=== PATIENT | female | born 1980 | race African-American/Black ===

== ENCOUNTER 2020-02-06 08:22 | Inpatient (IN) | payer MEDICAID ==
[~2020-02-06] VITALS: Ht 177.8 cm; Wt 116.3 kg
[~2020-02-06 08:22] MED LIST: NORCO 5-325 TA1 EACH ORAL; PANTOPRAZOLE SO40 MG ORAL; PROTONIX40 MG PO; REGLAN10 MG PO; VICODIN 5-5001 EACH ORAL; VICODIN 5-5001 EACH PO; ZANTAC150 MG ORAL
--- NOTE | 2020-02-06 08:35 | NUR ---
ED Nurse Note: Pt walked in from home c/o epigastric "burning" pain going up through her jesus states she has a hx of gastric reflux. Pt reports n/v. Respirations even and unlabored on room air. Vitals stable as documented. A+Ox4, speaking in complete sentences. Pt vomited yellow vomit upon arrival.
[2020-02-06 08:45] VITALS: BP 142/89
[2020-02-06] MEDS ORDERED: Dicyclomine HCl 10mg/5ml oral soln ORAL ONE (08:45)
[2020-02-06] MEDS ORDERED: Lidocaine 2% Visc 15ml soln ORAL ONE (08:45)
[2020-02-06] MEDS ORDERED: Morphine Sulfate 2mg/ml Inj(IV/IM USE ONLY) IVP ONE (08:45)
[2020-02-06] MEDS ORDERED: Mylanta II UD 30ml ORAL ONE (08:45)
--- NOTE | 2020-02-06 08:45 | Emergency Room Report ---
History of Present Illness General Chief Complaint: Vomiting Source: Patient Present Illness HPI Disclaimer: Please note that this report is being documented using DRAGON technology. This can lead to erroneous entry secondary to incorrect interpretation by the dictating instrument. HPI: 39-year-old female with history of gastritis presents for abdominal pain. Symptoms began early this morning. She reports eating a greasy burger last night and now having burning and cramping upper abdominal pain that radiates to the chest. Typical to her prior episodes of gastritis. She does not take it regular antacid. Denies palpitations, shortness of breath, cough, fever, chills, diarrhea. She had one episode of emesis on arrival to the ED and was nonbloody and nonbilious. Denies flank or lower pelvic pain. Denies dysuria or hematuria. No prior history of abdominal surgeries. No exacerbating or relieving factors. PMH: Gastritis PSH: Denied Allergies: Denied Social Hx: Regular tobacco use, social alcohol use Allergies: Coded Allergies: No Known Allergies (Unverified , 06/29/12) COVID-19 Screening Contact w/high risk pt: No Experienced COVID-19 symptoms?: Yes COVID-19 Testing performed DIRECTOR PACKAGING: No Patient History Last Menstrual Period: none Now: No Nursing Documentation-PMH Past Medical History: No History, Except For Hx Cardiac Problems: Yes - heart murmur Hx Hypertension: Yes Hx Gastrointestinal Problems: Yes - gastritis Review of Systems All Other Systems: negative except mentioned in HPI Physical Exam Vital Signs Date Time Temp Pulse Resp B/P (MAP) Pulse Ox O2 Delivery O2 Flow Rate FiO2 02/06/20 08:27 98.1 78 20 129/86 (100) 95 Room Air General: Awake and alert, no acute distress HEENT: NC/AT. EOMI. Cardiovascular: RRR. S1 and S2 normal. No murmur appreciated Resp: Normal work of breathing. No cough, wheezing or crackles appreciated Abdomen: Abdomen is soft, nondistended. Moderate tender to palpation in the epigastrium. No significant pain in the right upper or left upper quadrants or in the lower abdomen. No guarding. No rebound. Negative Villanueva's. Skin: Intact. No abrasions, laceration or rash over the exposed skin MSK: Normal tone and bulk. Moving all extremities. No obvious deformity. Neuro: Awake and alert. Mentating appropriately. Medical Decision Making Diagnostic Impression: Primary Impression: Gastritis Additional Impression: Intractable vomiting ER Course Is a 39-year-old female presenting for evaluation of epigastric abdominal pain. Differential includes but not limited to gastritis, gastroenteritis, pancreatitis, cholecystitis, hepatitis, GERD, pyelonephritis, UTI among others. IV access established. Patient receiving IV fluids, antiemetics, pain medication, antacids. Labs have returned within normal limits. Urinalysis unremarkable. Patient received multiple rounds of antiemetics, pain medication. Continues to vomit in ED. Will admit for intractable vomiting. Admit to panel physician, Dr. Scherer Laboratory Tests Test 02/06/20 08:40 02/06/20 13:15 White Blood Count 12.2 K/UL (4.8-10.8) H Red Blood Count 5.10 M/UL (4.20-5.40) Hemoglobin 16.5 G/DL (12.0-16.0) H Hematocrit 48.9 % (37.0-47.0) H Mean Corpuscular Volume 96 FL (80-99) Mean Corpuscular Hemoglobin 32.3 PG (27.0-31.0) H Mean Corpuscular Hemoglobin Concent 33.7 G/DL (32.0-36.0) Red Cell Distribution Width 14.0 % (11.6-14.8) Platelet Count 316 K/UL (150-450) Mean Platelet Volume 5.3 FL (6.5-10.1) L Neutrophils (%) (Auto) 50.9 % (45.0-75.0) Lymphocytes (%) (Auto) 39.1 % (20.0-45.0) Monocytes (%) (Auto) 7.9 % (1.0-10.0) Eosinophils (%) (Auto) 0.9 % (0.0-3.0) Basophils (%) (Auto) 1.2 % (0.0-2.0) Prothrombin Time 11.8 SEC (9.30-11.50) H Prothrombin Time INR 1.1 (0.9-1.1) Activated Partial Thromboplast Time 30 SEC (23-33) Sodium Level 140 MMOL/L (136-145) Potassium Level 4.3 MMOL/L (3.5-5.1) Chloride Level 105 MMOL/L (98-107) Carbon Dioxide Level 31 MMOL/L (21-32) Anion Gap 4 mmol/L (5-15) L Blood Urea Nitrogen 8 mg/dL (7-18) Creatinine 1.0 MG/DL (0.55-1.30) Estimated Glomerular Filtration Rate > 60 mL/min (>60) Glucose Level 134 MG/DL (74-106) H Calcium Level 9.3 MG/DL (8.5-10.1) Total Bilirubin 0.4 MG/DL (0.2-1.0) Aspartate Amino Transferase (AST) 21 U/L (15-37) Alanine Aminotransferase (ALT) 22 U/L (12-78) Alkaline Phosphatase 88 U/L (46-116) Troponin I 0.000 ng/mL (0.000-0.056) Total Protein 7.9 G/DL (6.4-8.2) Albumin 3.9 G/DL (3.4-5.0) Globulin 4.0 g/dL Albumin/Globulin Ratio 1.0 (1.0-2.7) Lipase 121 U/L (73-393) Urine Color Pale yellow Urine Appearance Clear Urine pH 6.5 (4.5-8.0) Urine Specific [place] 1.015 (1.005-1.035) Urine Protein 1+ (NEGATIVE) H Urine Glucose (UA) Negative (NEGATIVE) Urine Ketones 3+ (NEGATIVE) H Urine Blood Negative (NEGATIVE) Urine Nitrite Negative (NEGATIVE) Urine Bilirubin Negative (NEGATIVE) Urine Urobilinogen Normal MG/DL (0.0-1.0) Urine Leukocyte Esterase Negative (NEGATIVE) Urine RBC 0 /HPF (0 - 2) Urine WBC 0 /HPF (0 - 2) Urine Squamous Epithelial Cells Occasional /LPF Urine Bacteria Occasional /HPF (NONE) Urine HCG, Qualitative Negative (NEGATIVE) EKG Diagnostic Results Troponin ordered: Yes When was troponin ordered?: Feb 06, 2020 EKG Time: 08:45 Rate: normal Rhythm: NSR ST Segments: no acute changes Other Impression Sinus rhythm, normal axis, normal intervals, no ST segment changes. Precordial Q waves Rhythm Strip Diag. Results Rhythm Strip Time: 08:45 EP Interpretation: yes Rate: 60s Rhythm: NSR, no PVC's, no ectopy Last Vital Signs Date Time Temp Pulse Resp B/P (MAP) Pulse Ox O2 Delivery O2 Flow Rate FiO2 02/06/20 08:27 98.1 78 20 129/86 (100) 95 Room Air Disposition: ADMITTED INPATIENT Condition: Stable Scripts Famotidine* (Pepcid 20mg tablet*) 20 Mg Tablet 20 MG ORAL DAILY for Gerd, #30 TAB 0 Refills Prov: Ankush Le MD 02/06/20 Ondansetron Odt* (ZOFRAN ODT*) 4 Mg Tab.rapdis 4 MG BC EVERY 6 HOURS PRN for Nausea & Vomiting, #20 TAB 0 Refills Prov: Ankush Le MD 02/06/20 Ankush Le MD Feb 06, 2020 08:45
--- NOTE | 2020-02-06 08:56 | NUR ---
ED Nurse Note: pt aware of need for urine sample. medications given.
[2020-02-06 09:01] LABS: INR 1.1 (0.9-1.1)
[2020-02-06 09:08] LABS: BASOPHILS % (AUTO) 1.2 % (0.0-2.0); EOSINOPHILS % (AUTO) 0.9 % (0.0-3.0); HEMATOCRIT 48.9 % (37.0-47.0); HEMOGLOBIN 16.5 G/DL (12.0-16.0); LYMPHOCYTES % (AUTO) 39.1 % (20.0-45.0); MEAN CORPUSCULAR VOLUME 96 FL (80-99); MONOCYTES % (AUTO) 7.9 % (1.0-10.0); NEUTROPHILS % (AUTO) 50.9 % (45.0-75.0); PLATELET COUNT 316 K/UL (150-450); WHITE BLOOD COUNT 12.2 K/UL (4.8-10.8)
[2020-02-06 09:13] LABS: ALANINE AMINOTRANSFERASE 22 U/L (12-78); ALBUMIN 3.9 G/DL (3.4-5.0); ALKALINE PHOSPHATASE 88 U/L (46-116); ANION GAP 4 mmol/L (5-15); ASPARTATE AMINO TRANSFERASE 21 U/L (15-37); BILIRUBIN,TOTAL 0.4 MG/DL (0.2-1.0); BLOOD UREA NITROGEN 8 mg/dL (7-18); CALCIUM 9.3 MG/DL (8.5-10.1); CARBON DIOXIDE 31 MMOL/L (21-32); CHLORIDE 105 MMOL/L (98-107); POTASSIUM 4.3 MMOL/L (3.5-5.1); SODIUM 140 MMOL/L (136-145)
[2020-02-06] MEDS ORDERED: ONDANSETRON ODT4 MG BC (09:21)
[2020-02-06] MEDS ORDERED: FAMOTIDINE20 MG ORAL (09:21)
[2020-02-06] MEDS ORDERED: DiphenhydrAMINE 50mg/ml Inj IVP ONE ×2 (09:30→11:45)
[2020-02-06] MEDS ORDERED: Metoclopramide 10mg/2ml Inj IVP ONE (09:30)
[2020-02-06 10:45] VITALS: BP 149/82
--- NOTE | 2020-02-06 11:00 | NUR ---
ED Nurse Note: pt still unable to provide urine sample. ED MD aware
[2020-02-06] MEDS ORDERED: Meclizine 25mg tab ORAL PRN (11:45)
[2020-02-06] MEDS ORDERED: Ketorolac 30mg Inj IV ONE (12:30)
[2020-02-06 12:45] VITALS: BP 147/81
[2020-02-06 13:41] LABS: APPEARANCE,URINE CLEAR; BILIRUBIN, URINE NEGATIVE (NEGATIVE); COLOR,URINE PALE YELLOW; GLUCOSE, URINE (UA) NEGATIVE (NEGATIVE); KETONES,URINE 3+ (NEGATIVE); LEUKOCYTE ESTERASE ,URINE NEGATIVE (NEGATIVE); NITRITE,URINE NEGATIVE (NEGATIVE); PH,URINE 6.5 (4.5-8.0); PROTEIN,URINE 1+ (NEGATIVE); UROBILINOGEN,URINE NORMAL MG/DL (0.0-1.0)
[2020-02-06 14:54] VITALS: BP 141/76
--- NOTE | 2020-02-06 14:58 | NUR ---
ED Nurse Note: repot given to RIMA Lee on 4E
[2020-02-06 15:00] VITALS: BP 136/77
--- NOTE | 2020-02-06 15:10 | NUR ---
ED Nurse Note: Pt transferred safely to 4E. All belongings including miller sent with patient.
--- NOTE | 2020-02-06 15:21 | NUR ---
NURSE NOTES: I communicated MD Scherer for admission order for DVT, Code status, Diet and medication; waiting for order.
--- NOTE | 2020-02-06 15:22 | NUR ---
NURSE NOTES: I received patient from ER, came to the floor via gurney; I received telephone report from RIMA Padgett; patient alert x4; on room air, no sing of distress and shortness of breath; no sing of chest pain; IV line flushes well; skin intact; belonging singed, and patient had 467 USD, patient refused her money to be kept at safe, patient preferred to keep it at the bed side, charge nurse Vi is aware. side rails up x2, breaks engaged, bed at lowest position; call light within reach; will keep monitoring.
--- NOTE | 2020-02-06 18:15 | History and Physical Report ---
DATE OF ADMISSION: 02/06/2020 REASON FOR ADMISSION: Intractable vomiting. HISTORY OF PRESENT ILLNESS: This is a 39-year-old female who presents with intractable vomiting. The patient has a history of gastritis, presents with ongoing abdominal pain since the morning. The patient has reported nausea, vomiting . No other significant findings. PAST MEDICAL HISTORY: Notable for gastritis. MEDICATIONS: Reviewed. ALLERGIES: Reviewed. SOCIAL HISTORY: The patient does smoke. She does drink socially. REVIEW OF SYSTEMS: Otherwise negative. PHYSICAL EXAMINATION: GENERAL: The patient is a well-developed female. VITAL SIGNS: Reviewed. Blood pressure 136/77, , pulse 91, respirations 20, sats 99% on room air. HEENT: Negative. NECK: Supple. No lymphadenopathy. LUNGS: Clear, symmetric. CARDIAC: Slightly bradycardic. ABDOMEN: Mildly tender diffusely. EXTREMITIES: No cyanosis, clubbing, or edema LABORATORY DATA: Otherwise reviewed. White cell count 12.2. Chemistries noted and otherwise fairly negative. IMPRESSION: 1. Intractable vomiting. 2. History of gastritis, abdominal pain, mild leukocytosis. RECOMMENDATION: NPO, IV hydration, antiemetics, and proton pump inhibitor. GI evaluation. Recheck labs in a.m. and start diet once the patient improves and symptoms resolve. Maycol Scherer M.D. DR: LEONEL JOB#: [id number] CC:
--- NOTE | 2020-02-06 19:09 | NUR ---
HAND-OFF: Report given to RIMA Early.
--- NOTE | 2020-02-06 19:10 | NUR ---
NURSE NOTES: Patient in bed, awake and alert x4. On room air with no signs of distress or SOB. Denies vomiting. Pt reports mild nausea. Will administer PRN nausea medication as ordered. IV intact and patent. Commode at bedside. Bed locked and in lowest position. Call light in reach. Will continue plan of care.
[2020-02-06 20:00] VITALS: BP 133/81
[2020-02-07] VITALS: BP 142/85
[2020-02-07 04:00] VITALS: BP 142/67
--- NOTE | 2020-02-07 06:08 | NUR ---
NURSE NOTES: Patient had emesis x2 this shift. Administered Zofran PRN and Mylanta PRN as ordered. Will continue plan of care.
--- NOTE | 2020-02-07 06:26 | NUR ---
NURSE HAND-OFF: Important Events on Shift: Emesis x2, Pain and nausea control Patient Status: Stable Diet: NPO Pending Orders: N/A Pending Results/Labs: CBC, BMP Pending MD notification: N/A Latest Vital Signs: Temperature 97.9 , Pulse 80 , B/P 142 /67 , Respiratory Rate 20 , O2 SAT 98 , Room Air, O2 Flow Rate . Vital Sign Comment: N/A Latest Wright Fall Score: 20 Fall Risk: Low Risk Safety Measures: Call light Within Reach, Bed Alarm Zone 1, Side Rails Side Rails x2, Bed position . Fall Precautions:
[2020-02-07 07:53] LABS: HEMATOCRIT 43.5 % (37.0-47.0); HEMOGLOBIN 14.8 G/DL (12.0-16.0); MEAN CORPUSCULAR VOLUME 92 FL (80-99); PLATELET COUNT 304 K/UL (150-450); RED BLOOD COUNT 4.71 M/UL (4.20-5.40); RED CELL DISTRIBUTION WIDTH 13.7 % (11.6-14.8); WHITE BLOOD COUNT 19.7 K/UL (4.8-10.8)
[2020-02-07 07:57] LABS: ANION GAP 9 mmol/L (5-15); BLOOD UREA NITROGEN 6 mg/dL (7-18); CALCIUM 8.4 MG/DL (8.5-10.1); CARBON DIOXIDE 26 MMOL/L (21-32); CHLORIDE 102 MMOL/L (98-107); CREATININE 0.8 MG/DL (0.55-1.30); POTASSIUM 3.6 MMOL/L (3.5-5.1); SODIUM 137 MMOL/L (136-145)
[2020-02-07 08:31] VITALS: BP 136/82
--- NOTE | 2020-02-07 08:42 | NUR ---
NURSE NOTES: Patient awake and alert and oriented,respirations unlabored.Patient state she is feeling a little better.IV fluids infusing as ordered.Patient NPO except ice chips and medication.Call light within reach.
--- NOTE | 2020-02-07 09:50 | General Progress Note ---
Subjective Allergies: Coded Allergies: No Known Allergies (Unverified , 06/29/12) Subjective wbc up still with abdominal pain gi and ID called Objective Last 24 Hour Vital Signs Date Time Temp Pulse Resp B/P (MAP) Pulse Ox O2 Delivery O2 Flow Rate FiO2 02/07/20 08:31 98.8 76 20 136/82 (100) 96 02/07/20 04:00 97.9 80 20 142/67 (92) 98 02/07/20 00:00 97.2 51 19 142/85 (104) 100 02/06/20 21:00 Room Air 02/06/20 20:00 98.4 55 20 133/81 (98) 97 02/06/20 15:56 98.1 02/06/20 15:50 Room Air 02/06/20 15:10 98.5 58 20 141/72 98 Room Air 02/06/20 15:00 98.1 48 20 136/77 (96) 99 02/06/20 14:54 97.3 62 20 141/76 99 Room Air 02/06/20 12:45 98.0 49 20 147/81 97 Room Air 02/06/20 10:45 97.8 57 20 149/82 98 Room Air Intake and Output 02/06/20 02/07/20 19:00 07:00 Intake Total 200 ml 200 ml Output Total 100 ml Balance 200 ml 100 ml Intake Oral 200 ml IV Total 200 ml Output Emesis 100 ml # Voids 1 2 Laboratory Tests 02/06/20 13:15: Urine Color Pale yellow, Urine Appearance Clear, Urine pH 6.5, Urine Specific [place] 1.015, Urine Protein 1+H, Urine Glucose (UA) Negative, Urine Ketones 3+H , Urine Blood Negative, Urine Nitrite Negative, Urine Bilirubin Negative, Urine Urobilinogen Normal, Urine Leukocyte Esterase Negative, Urine RBC 0, Urine WBC 0, Urine Squamous Epithelial Cells Occasional, Urine Bacteria Occasional, Urine HCG, Qualitative Negative 02/07/20 07:00: White Blood Count 19.7#H, Red Blood Count 4.71, Hemoglobin 14.8, Hematocrit 43.5, Mean Corpuscular Volume 92, Mean Corpuscular Hemoglobin 31.5H, Mean Corpuscular Hemoglobin Concent 34.1, Red Cell Distribution Width 13.7, Platelet Count 304, Mean Platelet Volume 5.5L, Neutrophils (%) (Auto) , Lymphocytes (%) (Auto) , Monocytes (%) (Auto) , Eosinophils (%) (Auto) , Basophils (%) (Auto) , Neutrophils % (Manual) [Pending], Lymphocytes % (Manual) [Pending], Platelet Estimate [Pending], Platelet Morphology [Pending], Sodium Level 137, Potassium Level 3.6, Chloride Level 102, Carbon Dioxide Level 26, Anion Gap 9, Blood Urea Nitrogen 6L, Creatinine 0.8, Estimat Glomerular Filtration Rate > 60, Glucose Level 126H, Calcium Level 8.4L Height (Feet): 5 Height (Inches): 10.00 Weight (Pounds): 260 Objective WDWN NAD clear breath sounds bilaterally without rhonchi or wheeze [id number] without MRG NABS tender abdomen diffuse; no guarding no CCE nonfocal Assessment/Plan Assessment/Plan: intractable vomiting gastritis leukocytosis PLAN id and gi to see iv fluids zofran antibiotics cultures CT abdomen with po contrast impression, plan, and exam edited and reviewed in detail care discussed with Maycol Guerrero MD Feb 07, 2020 09:50
[2020-02-07] MEDS ORDERED: Omnipaque-300 100ml vial INJ PRN (10:00)
--- NOTE | 2020-02-07 11:31 | General Progress Note ---
Subjective Allergies: Coded Allergies: No Known Allergies (Unverified , 06/29/12) Objective Last 24 Hour Vital Signs Date Time Temp Pulse Resp B/P (MAP) Pulse Ox O2 Delivery O2 Flow Rate FiO2 02/07/20 09:59 Room Air 02/07/20 08:31 98.8 76 20 136/82 (100) 96 02/07/20 04:00 97.9 80 20 142/67 (92) 98 02/07/20 00:00 97.2 51 19 142/85 (104) 100 02/06/20 21:00 Room Air 02/06/20 20:00 98.4 55 20 133/81 (98) 97 02/06/20 15:56 98.1 02/06/20 15:50 Room Air 02/06/20 15:10 98.5 58 20 141/72 98 Room Air 02/06/20 15:00 98.1 48 20 136/77 (96) 99 02/06/20 14:54 97.3 62 20 141/76 99 Room Air 02/06/20 12:45 98.0 49 20 147/81 97 Room Air Intake and Output 02/06/20 02/07/20 19:00 07:00 Intake Total 200 ml 200 ml Output Total 100 ml Balance 200 ml 100 ml Intake Oral 200 ml IV Total 200 ml Output Emesis 100 ml # Voids 1 2 Laboratory Tests 02/06/20 13:15: Urine Color Pale yellow, Urine Appearance Clear, Urine pH 6.5, Urine Specific [place] 1.015, Urine Protein 1+H, Urine Glucose (UA) Negative, Urine Ketones 3+H , Urine Blood Negative, Urine Nitrite Negative, Urine Bilirubin Negative, Urine Urobilinogen Normal, Urine Leukocyte Esterase Negative, Urine RBC 0, Urine WBC 0, Urine Squamous Epithelial Cells Occasional, Urine Bacteria Occasional, Urine HCG, Qualitative Negative 02/07/20 07:00: White Blood Count 19.7#H, Red Blood Count 4.71, Hemoglobin 14.8, Hematocrit 43.5, Mean Corpuscular Volume 92, Mean Corpuscular Hemoglobin 31.5H, Mean Corpuscular Hemoglobin Concent 34.1, Red Cell Distribution Width 13.7, Platelet Count 304, Mean Platelet Volume 5.5L, Neutrophils (%) (Auto) , Lymphocytes (%) (Auto) , Monocytes (%) (Auto) , Eosinophils (%) (Auto) , Basophils (%) (Auto) , Neutrophils % (Manual) [Pending], Lymphocytes % (Manual) [Pending], Platelet Estimate [Pending], Platelet Morphology [Pending], Sodium Level 137, Potassium Level 3.6, Chloride Level 102, Carbon Dioxide Level 26, Anion Gap 9, Blood Urea Nitrogen 6L, Creatinine 0.8, Estimat Glomerular Filtration Rate > 60, Glucose Level 126H, Calcium Level 8.4L Height (Feet): 5 Height (Inches): 10.00 Weight (Pounds): 260 Assessment/Plan Assessment/Plan: Assessment - Abd pain - N/V - Obesity - h/o gastrtitis - Leukocytosis Recommendations - await CT scan - anti emetics - follow symptoms - IVF - PPI Thank you Lion Renae MD Feb 07, 2020 11:31
--- NOTE | 2020-02-07 12:27 | Diagnostic Imaging Report ---
CT ABDOMEN AND PELVIS WITH CONTRAST INDICATION: Intractable vomiting, abdominal pain TECHNIQUE: Continuous helical transaxial imaging of the abdomen and pelvis was obtained from the lung bases to the pubic symphysis during intravenous contrast administration. Coronal 2-D reformats were also obtained. Study obtained in a Siemens sensation [address] Automatic Exposure Control was utilized. Total Dose length Product (DLP): 1486.[address] Dose Index Volume (CTDIvol): 26.2 mGy COMPARISON: CT abdomen pelvis dated 09/21/2011 FINDINGS: Lower chest:: Bibasilar subsegmental atelectasis. Small hiatal hernia. Hepatobiliary:: Unremarkable. Genitourinary:: No hydronephrosis or nephrolithiasis. Adrenals:: Unremarkable. Pancreas:: Unremarkable. Gastrointestinal:: No evidence of obstruction. Appendix is normal. No evidence of obstruction. Scattered colonic diverticulosis without evidence of acute diverticulitis. Spleen: : Unremarkable. Peritoneum:: No free air or free fluid. Moderate fat-containing periumbilical hernia. Bones and soft tissues:: There are multilevel discogenic degenerative changes of the visualized spine. IMPRESSION: Colonic diverticulosis without evidence of acute diverticulitis. The CT scanner at [facility] is accredited by the [employer] and the scans are performed using protocols designed to limit radiation exposure to as low as reasonably achievable to attain images of sufficient resolution adequate for diagnostic evaluation.
[2020-02-07 12:51] VITALS: BP 158/100
--- NOTE | 2020-02-07 14:35 | NUR ---
CASE MANAGEMENT:INITIAL REVIEW 39 YR OLD FEMALE CC;VOMITING SI;INTRACTABLE VOMITING. GASTRITIS. 98.1 49 22 149/82 95% ON RA WBC 19.7 PT 11.8 UA+ PROTEIN, KETONES ABD/PELVIS CT ~ Colonic diverticulosis without evidence of acute diverticulitis. IS;ZOFRAN IV X2 PEPCID IV IVF NS BOLUS X2 MYLANTA PO LIDOCAINE PO ONCE MORPHINE SULFATE IV REGLAN IV TORADOL IV PHENERGAN IM ADMITTED TO MED SURG MED SURG STATUS DCP;FROM HOME
[2020-02-07 16:00] VITALS: BP 150/87
[2020-02-07] MEDS ORDERED: Morphine Sulfate 2mg/ml Inj(IV/IM USE ONLY) IVP PRN (16:15)
[2020-02-07] MEDS ORDERED: Morphine Sulfate 4mg/ml Inj (IV USE ONLY) IVP PRN (16:15)
--- NOTE | 2020-02-07 19:15 | NUR ---
NURSE NOTES: Patient left Against medical Advice,patient state she has children at home and there is a lot to do . Patient is planning a celebration this weekend and need to go home. Patient state they are not explaining to her what is going on with her.patient aware that she is receiving antibiotics,patient request pain medication,order was received and patient received pain medication.urine culture was sent and patient aware that we wait for the results.CT was done today.I explain to patient that Doctor will see the results and will go over the results.Patient still wants to Leave .ID removed and ID hospital band removed.Patient has her personal belongings Patient state her ride is down stairs,patient took elevator to private vehicle.
--- NOTE | 2020-02-08 00:45 | Consultation ---
DATE OF CONSULTATION: 02/07/2020 GASTROLOGY CONSULTATION CHIEF COMPLAINT: I was asked to see this patient by Dr. Maycol Scherer for evaluation of vomiting. HISTORY OF PRESENT ILLNESS: The patient is a 39-year-old woman who was admitted for intractable nausea and vomiting, which started since this morning. The patient has had previous episodes of nausea and vomiting, which have resolved. The patient denies any hematemesis or fevers or chills. She also denied any cough. PAST MEDICAL HISTORY: History of gastritis. FAMILY HISTORY: Noncontributory. SOCIAL HISTORY: The patient does not smoke and she drinks occasionally. ALLERGIES: None. REVIEW OF SYSTEMS: Otherwise negative. MEDICATIONS: See the chart. PHYSICAL EXAMINATION: GENERAL: An obese woman, seen in her room. HEENT: Normocephalic and atraumatic. Sclerae anicteric. Oropharynx is clear. NECK: Supple. CHEST: Clear to auscultation. CARDIOVASCULAR: Exam revealed a regular rate. ABDOMEN: Soft and nondistended. EXTREMITIES: No edema. LABORATORY DATA: Noted. ASSESSMENT: This patient presents with acute episode of nausea, vomiting of unclear etiology. The differential diagnoses would include viral gastroenteritis versus a bacterial process. COVID-19 can also present with acute gastrointestinal-type symptoms and the patient's leukocytosis is concerning, although the patient denies any shortness of breath or cough. The patient should be placed on broad-spectrum antibiotics and her stools can be cultured for evaluation of infection. I will give also proton pump inhibitor and antiemetics. Diet can be started as clears and advanced as tolerated. The patient can undergo endoscopic evaluation should her symptoms fail to respond. has already been done and results will be reviewed. RECOMMENDATIONS: Per above discussion and per orders written in the chart. Thank you for asking me to participate in the care of this patient. Lion Izquierdo M.D. DR: SLIME JOB#: [id number] CC:
== END 2020-02-07 19:15 | disposition home or self-care (01) | DRG 241 ==
LOC: EMR 08:40 → 4E 13:43 → EDBEDREQ 14:20 → 4E 15:46
DX: K29.70 Gastritis, unspecified, without bleeding (principal); D72.829 Elevated white blood cell count, unspecified; R00.1 Bradycardia, unspecified; E66.9 Obesity, unspecified; Z68.36 Body mass index [BMI] 36.0-36.9, adult; K57.30 Diverticulosis of large intestine without perforation or abscess without bleeding; K44.9 Diaphragmatic hernia without obstruction or gangrene; K42.9 Umbilical hernia without obstruction or gangrene; I10 Essential (primary) hypertension; F17.200 Nicotine dependence, unspecified, uncomplicated
CPT/HCPCS: 36415; 74177; 80048; 80053; 81003; 81025; 83690; 84484; 85007; 85025; 85610; 85730; 87040; 87086; 93005; 96361; 96372; 96374; 96375; 96376; 99285; J2405; J2765; J7030